=== PATIENT | male | born 2000 | race African-American/Black ===

== ENCOUNTER 2020-07-14 12:26 | Emergency (ER) | payer BC, OTHER ==
[~2020-07-14] VITALS: Ht 167.6 cm; Wt 57.0 kg
[2020-07-14] MEDS ORDERED: PRED50TA PO (13:16)
[2020-07-14] MEDS ORDERED: CETI10TA74 PO (13:16)
--- NOTE | 2020-07-14 13:17 | PHYS DOC ---
Past Medical History Past Medical History: No Pertinent History, Constipation Past Surgical History: No Surgical History Smoking Status: Never Smoker Alcohol Use: Occasionally Drug Use: None Social History Narrative: last use yesterday General Adult EDM: Chief Complaint: EYE PROBLEMS HPI: HPI: Patient is a 19 year old male who presents with bilateral eye redness, itching, clear drainage, symptoms began 6 days ago. He is using [id number] eyedrops as well as Zyrtec with some relief. Patient denies any vision disturbance. Denies any fever, coughing, congestion. Review of Systems: Review of Systems: Constitutional: Denies fever or chills. [] Eyes: Reports bilateral eye redness, itching, clear drainage. Denies change in visual acuity. [] : Denies dysuria. [] Musculoskeletal: Denies back pain or joint pain. [] Integument: Denies rash. [] Neurologic: Denies headache, focal weakness or sensory changes. [] Psychiatric: Denies depression or anxiety. [] Heart Score: Risk Factors: Risk Factors: DM, Current or recent (<one month) smoker, HTN, HLP, family history of CAD, obesity. Risk Scores: Score 0 - 3: 2.5% MACE over next 6 weeks - Discharge Home Score 4 - 6: 20.3% MACE over next 6 weeks - Admit for Clinical Observation Score 7 - 10: 72.7% MACE over next 6 weeks - Early Invasive Strategies Allergies: Allergies: Allergies Coded Allergies Type Severity Reaction Last Updated Verified No Known Drug Allergies 12/16/13 No Physical Exam: PE: Constitutional: Well developed, well nourished, no acute distress, non-toxic appearance. [] HENT: Normocephalic, atraumatic, bilateral external ears normal, oropharynx moist, no oral exudates, nose normal. [] Eyes: PERRLA, EOMI, bilateral conjunctiva slightly injected left worse than right with small amount of swelling to bilateral upper eyelids. Skin: Warm, dry, no erythema, no rash. [] Back: No tenderness, no CVA tenderness. [] Extremities: No tenderness, no cyanosis, no clubbing, ROM intact, no edema. [] Neurologic: Alert and oriented X 3, normal motor function, normal sensory function, no focal deficits noted. [] Psychologic: Affect normal, judgement normal, mood normal. [] Current Patient Data: Vital Signs: Vital Signs Date Time Temp Pulse Resp B/P (MAP) Pulse Ox O2 Delivery O2 Flow Rate FiO2 07/14/20 12:35 98.9 89 16 117/68 (84) 98 Room Air 98.9 EKG: EKG: [] Radiology/Procedures: Radiology/Procedures: [] Course & Med Decision Making: Course & Med Decision Making Pertinent Labs and Imaging studies reviewed. (See chart for details) This is a 19-year-old male patient presenting to the ED today with allergic conjunctivitis bilaterally. Discharged with Zaditor, prednisone and encouraged to continue taking Zyrtec. Follow-up with scrap iron cutter in 1 to 2 weeks. Dragon Disclaimer: Dragon Disclaimer: This electronic medical record was generated, in whole or in part, using a voice recognition dictation system. Departure Departure Impression: Primary Impression: Allergic conjunctivitis Qualified Codes: H10.13 - Acute atopic conjunctivitis, bilateral Disposition: HOME, SELF-CARE Condition: STABLE Referrals: NO PCP (PCP) [facility] LAM MD Follow-up in 2 weeks if symptoms persist Patient Instructions: Allergic Conjunctivitis Additional Instructions: You have allergic conjunctivitis. Use the prescribed medications as ordered. Follow-up with your own scrap iron cutter or primary care doctor in 2 weeks Scripts Cetirizine Hcl (ZYRTEC) 10 Mg Tablet 1 TAB PO DAILY, #30 TAB Prov: TAI POWELL APRN 07/14/20 Prednisone (PREDNISONE) 50 Mg Tablet 1 TAB PO DAILY, #5 TAB Prov: TAI POWELL APRN 07/14/20 Justicifation of Admission Dx: Justifications for Admission: Justification of Admission Dx: N/A TAI POWELL APRN Jul 14, 2020 13:17
[2020-07-14 13:53] VITALS: BP 114/58
== END 2020-07-14 13:53 | disposition home or self-care (01) ==
LOC: ER 12:26
DX: H10.13 Acute atopic conjunctivitis, bilateral (principal); R60.0 Localized edema
CPT/HCPCS: 99283